=== PATIENT | male | born 1950 | race Caucasian/White ===

== ENCOUNTER 2019-03-08 09:36 | Emergency (ER) | payer MEDICARE, OTHER ==
[~2019-03-08] VITALS: Ht 180.3 cm; Wt 108.9 kg
--- OUTSIDE RECORDS SUMMARY | 2019-03-08 09:42 | XMS REPORT ---
Author Author AMARIS PARKER Organization [employer] Address Unknown Phone Unavailable Care Team Providers Care Functional Tester Typewriters Name Role Phone AMARIS PARKER CP Unavailable Allergies, Adverse Reactions, Alerts Substance Reaction Event Type N.K.D.A. Info Not Available Non Drug Allergy Problems Problem Type Condition Code Onset Dates Condition Status Problem Gout of ankle, unspecified cause, unspecified chronicity, unspecified laterality M10.9 Active Problem Hypercholesterolemia E78.0 Active Problem Cardiac defibrillator in place Z95.810 Active Problem Establishing care with new doctor, encounter for Z71.89 Active Assessment Allergic contact dermatitis, unspecified trigger L23.9 Active Medications Medication Code System Code Instructions Start Date End Date Status Dosage Fish Oil Concentrate [facility] [address]783-[address]60 1000 MG Orally twice a day 1 capsule Indomethacin CR [facility] [address]-64 75 MG Orally 2 times a day 1 capsule with food or milk Aspirin Childrens [facility] [address]-79 81 MG Orally Once a day 1 tablet PredniSONE [facility] [address]-85 10 mg Orally Once a day Aug 12, 2016 3 tabs x 3 days, then 2 tabs x 3 days, then 1 tab x 3 days Allopurinol [facility] [address]-73 300 MG Orally Once a day 1 tablet Procedures Procedure Coding System Code Date SOLUMEDROL (UP TO 125 MG) CPT-4 J2930 Aug 12, 2016 THER/PROPH/DIAG INJ, SC/IM CPT-4 46067 Aug 12, 2016 Office Visit, Est Pt., Level 3 CPT-4 91794 Aug 12, 2016 Vital Signs Date/Time: Aug 12, 2016 Cardiac Monitoring Heart Rate 86 bpm Weight 236 lbs Height 71 in BMI 32.91 Index Blood Pressure Diastolic 70 mmHg Blood Pressure Systolic 122 mmHg Results No Known Results Summary Purpose [employer]Works Submission
--- OUTSIDE RECORDS SUMMARY | 2019-03-08 09:42 | XMS REPORT ---
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 49807330 Problem Cardiac defibrillator in place Z95.810 Active 699452716 Problem Hypercholesterolemia E78.0 Active 26772599 ALLERGIES No Known Allergies ENCOUNTERS Encounter Location Date Diagnosis [place] [address] [address] Sep, Idiopathic chronic gout of multiple sites without tophus M1A.09X0 [place] [address] [place] [id number] [place] [address] Aug, Gout of ankle, unspecified cause, unspecified chronicity, unspecified laterality M10.9 [place] [address] [place] [id number] [place] [address] Aug, Gout of ankle, unspecified cause, unspecified chronicity, unspecified laterality M10.9 ; Hypercholesterolemia E78.0 ; Cardiac defibrillator in place Z95.810 and Rib pain on right side R07.81 [place] [address] [place] [id number] [place] [address] Aug, Urticaria L50.9 [facility] [address] [place] [id number] [place] [address] Jul, Allergic contact dermatitis, unspecified trigger L23.9 [place] [address] [place] [id number] [place] [address] May, Gout of ankle, unspecified cause, unspecified chronicity, unspecified laterality M10.9 and Hypercholesterolemia E78.0 [facility] [address] [facility] [id number] [place] [address] May, [facility] [address] [facility] [id number] [place] [address] May, Establishing care with new doctor, encounter for Z71.89 ; Gout of ankle, unspecified cause, unspecified chronicity, unspecified laterality M10.9 and Hypercholesterolemia E78.0 IMMUNIZATIONS No Known Immunizations SOCIAL HISTORY Never Assessed REASON FOR VISIT Transition of Care, Needs refills for his gout-Eulogio KHAN, PT has a bite/rash on left forarm he has concerns about PLAN OF CARE Activity Details Follow Up 6 Months Reason: VITAL SIGNS Height 71 in 2017-09-29 Weight 224.7 lbs 2017-09-29 Temperature 97.9 degrees Fahrenheit 2017-09-29 Heart Rate 74 bpm 2017-09-29 Respiratory Rate 20 2017-09-29 BMI 31.34 kg/m2 2017-09-29 Blood pressure systolic 128 mmHg 2017-09-29 Blood pressure diastolic 80 mmHg 2017-09-29 MEDICATIONS Medication Instructions Dosage Frequency Start Date End Date Duration Status Fish Oil Concentrate 1000 MG Orally twice a day 1 capsule 12h Active Indomethacin ER 75 MG Orally 2 times a day, prn gout flare 1 capsule with food or milk Active Aspirin Childrens 81 MG Orally Once a day 1 tablet 24h Active Allopurinol 300 MG Orally Once a day 1 tablet 24h 13 Sep, 2018 90 days Active RESULTS No Results PROCEDURES Procedure Date Ordered Result Body Site [facility] VISIT ESTABLISHED PATIENT Sep 29, 2017 INSTRUCTIONS MEDICATIONS ADMINISTERED No Known Medications MEDICAL (GENERAL) HISTORY Type Description Date Medical History Gout, unspecified cause, unspecified chronicity, unspecified site Medical History Hyperlipidemia, unspecified Medical History cad Surgical History pacemaker/defibrillator 2009 Surgical History Lead replaced onm Pacemaker 2016 Hospitalization History heart attack
--- OUTSIDE RECORDS SUMMARY | 2019-03-08 09:42 | XMS REPORT ---
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 47578255 Problem Cardiac defibrillator in place Z95.810 Active 950005418 Problem Hypercholesterolemia E78.0 Active 49651765 ALLERGIES No Information ENCOUNTERS Encounter Location Date Diagnosis [place] [address] [address] Jun, [place] [address] [address] May, Idiopathic chronic gout of multiple sites without tophus M1A.09X0 [place] [address] [address] Sep, Idiopathic chronic gout of multiple sites without tophus M1A.09X0 [place] [address] [place] [id number] [place] [address] Aug, Gout of ankle, unspecified cause, unspecified chronicity, unspecified laterality M10.9 [place] [address] [address] Aug, Gout of ankle, unspecified cause, unspecified chronicity, unspecified laterality M10.9 ; Hypercholesterolemia E78.0 ; Cardiac defibrillator in place Z95.810 and Rib pain on right side R07.81 [place] [address] [place] [id number] [place] [address] 02 Aug, 2016 Urticaria L50.9 [facility] [address] [facility] [id number] [place] [address] Jul, Allergic contact dermatitis, unspecified trigger L23.9 [facility] [address] [facility] [id number] [address] May, Gout of ankle, unspecified cause, unspecified chronicity, unspecified laterality M10.9 and Hypercholesterolemia E78.0 [facility] [address] [place] [id number] [address] May, [facility] [address] [facility] [id number], [place] [address] May, Establishing care with new doctor, encounter for Z71.89 ; Gout of ankle, unspecified cause, unspecified chronicity, unspecified laterality M10.9 and Hypercholesterolemia E78.0 IMMUNIZATIONS No Known Immunizations SOCIAL HISTORY Never Assessed REASON FOR VISIT medication refill PLAN OF CARE VITAL SIGNS MEDICATIONS Medication Instructions Dosage Frequency Start Date End Date Duration Status Indomethacin ER 75 MG Orally 2 times a day, prn gout flare 1 capsule with food or milk Jun, 30 days Active Allopurinol 300 MG Orally Once a day 1 tablet 24h Jun, 30 days Active RESULTS No Results PROCEDURES No Known procedures INSTRUCTIONS MEDICATIONS ADMINISTERED No Known Medications MEDICAL (GENERAL) HISTORY Type Description Date Medical History Gout, unspecified cause, unspecified chronicity, unspecified site Medical History Hyperlipidemia, unspecified Medical History cad Surgical History pacemaker/defibrillator 2009 Surgical History Lead replaced onm Pacemaker 2016 Hospitalization History heart attack
--- OUTSIDE RECORDS SUMMARY | 2019-03-08 09:42 | XMS REPORT ---
Author ARISTEO Maddox [facility] eClinical[employer] Address Unknown Phone Unavailable Care Team Providers Care Supervisor Intermediates Name Role Phone ARISTEO PRUITT CP Unavailable Allergies, Adverse Reactions, Alerts Substance Reaction Event Type N.K.D.A. Info Not Available Non Drug Allergy Problems Problem Type Condition Code Onset Dates Condition Status Problem Gout of ankle, unspecified cause, unspecified chronicity, unspecified laterality M10.9 Active Problem Hypercholesterolemia E78.0 Active Problem Cardiac defibrillator in place Z95.810 Active Assessment Hypercholesterolemia E78.0 Active Problem Establishing care with new doctor, encounter for Z71.89 Active Assessment Gout of ankle, unspecified cause, unspecified chronicity, unspecified laterality M10.9 Active Medications Medication Code System Code Instructions Start Date End Date Status Dosage Allopurinol [facility] [address]-71 300 MG Orally Once a day 1 tablet Fish Oil Concentrate [facility] 18821-59563 1000 MG Orally twice a day 1 capsule Aspirin Childrens [facility] [address]-04 81 MG Orally Once a day 1 tablet Indomethacin CR [facility] [address]-98 75 MG Orally 2 times a day 1 capsule with food or milk Procedures Procedure Coding System Code Date Office Visit, Est Pt., Level 4 CPT-4 01327 Jun 06, 2016 Vital Signs Date/Time: Jun 06, 2016 Cardiac Monitoring Heart Rate 88 bpm Weight 238 lbs Height 71 in BMI 33.19 Index Blood Pressure Diastolic 92 mmHg Blood Pressure Systolic 140 mmHg Results No Known Results Summary Purpose [employer]ClinicalWorks Submission
--- OUTSIDE RECORDS SUMMARY | 2019-03-08 09:42 | XMS REPORT ---
Author Author GERMÁN SUTTON Organization [employer] Address Unknown Phone Unavailable Care Team Providers Care Trailer Truck Driver Name Role Phone GERMÁN SUTTON CP Unavailable Allergies, Adverse Reactions, Alerts Substance Reaction Event Type N.K.D.A. Info Not Available Non Drug Allergy Problems Problem Type Condition Code Onset Dates Condition Status Problem Gout of ankle, unspecified cause, unspecified chronicity, unspecified laterality M10.9 Active Problem Hypercholesterolemia E78.0 Active Problem Cardiac defibrillator in place Z95.810 Active Problem Establishing care with new doctor, encounter for Z71.89 Active Assessment Urticaria L50.9 Active Medications Medication Code System Code Instructions Start Date End Date Status Dosage Aspirin Childrens [facility] [address]-18 81 MG Orally Once a day 1 tablet Fish Oil Concentrate [facility] 10757-32474 1000 MG Orally twice a day 1 capsule PredniSONE [facility] [address]-80 50 MG Orally Once a day Aug 14, 2016 Aug 21, 2016 1 tablet Indomethacin CR [facility] [address]-76 75 MG Orally 2 times a day 1 capsule with food or milk Allopurinol [facility] [address]-68 300 MG Orally Once a day 1 tablet Procedures Procedure Coding System Code Date Office Visit, Est Pt., Level 3 CPT-4 47319 Aug 14, 2016 Vital Signs Date/Time: Aug 14, 2016 Cardiac Monitoring Heart Rate 68 bpm Weight 237 lbs Height 71 in BMI 33.05 Index Blood Pressure Diastolic 80 mmHg Blood Pressure Systolic 136 mmHg Results No Known Results Summary Purpose eClinicalWorks Submission
--- OUTSIDE RECORDS SUMMARY | 2019-03-08 09:43 | XMS REPORT ---
Author ARISTEO Maddox [facility] eClinical[employer] Address Unknown Phone Unavailable Care Team Providers Care Project Manager Name Role Phone ARISTEO PRUITT CP Unavailable Allergies, Adverse Reactions, Alerts Substance Reaction Event Type N.K.D.A. Info Not Available Non Drug Allergy Problems Problem Type Condition Code Onset Dates Condition Status Assessment Rib pain on right side R07.81 Active Problem Gout of ankle, unspecified cause, unspecified chronicity, unspecified laterality M10.9 Active Problem Hypercholesterolemia E78.0 Active Problem Cardiac defibrillator in place Z95.810 Active Assessment Hypercholesterolemia E78.0 Active Assessment Cardiac defibrillator in place Z95.810 Active Problem Establishing care with new doctor, encounter for Z71.89 Active Assessment Gout of ankle, unspecified cause, unspecified chronicity, unspecified laterality M10.9 Active Medications Medication Code System Code Instructions Start Date End Date Status Dosage Indomethacin CR [facility] [address]-94 75 MG Orally 2 times a day 1 capsule with food or milk Allopurinol [facility] [address]-92 300 MG Orally Once a day 1 tablet Aspirin Childrens [facility] [address]-92 81 MG Orally Once a day 1 tablet Fish Oil Concentrate [facility] [address] 1000 MG Orally twice a day 1 capsule Procedures Procedure Coding System Code Date X-RAY EXAM OF RIBS CPT-4 48180 Aug 28, 2016 Office Visit, Est Pt., Level 4 CPT-4 81059 Aug 28, 2016 Vital Signs Date/Time: Aug 28, 2016 Cardiac Monitoring Heart Rate 72 bpm Weight 235.7 lbs Height 71 in BMI 32.87 Index Blood Pressure Diastolic 72 mmHg Blood Pressure Systolic 130 mmHg Results Name Result Date Reference Range Unit Abnormality Flag Xray : Rib Series, Right (IN HOUSE) Summary Purpose eClinicalWorks Submission
[2019-03-08] MEDS ORDERED: predniSONE 20 MG TAB PO ONE (10:15)
[2019-03-08] MEDS ORDERED: KETOROLAC 60 MG/2 ML VIAL IM ONE (10:15)
--- NOTE | 2019-03-08 10:15 | ED Lower Extremity ---
General Chief Complaint: Lower Extremity Stated Complaint: PT STATES HE HAS GOUT IN RT KNEE Source: patient Exam Limitations: no limitations History of Present Illness Date Seen by Provider: March 08, 2019 Time Seen by Provider: 10:00 Initial Comments This is a 68 y/o m who presents to the ED for evaluation of R knee pain. Pt reports history of gout. Ran out of allopurinol a few days ago. Reports increased R knee pain for the past 2-3 days exactly like previous episodes of gout. Pain is constant, 6-7/10, worse with weight bearing/movement. No fever. Allergies and Home Medications Allergies Coded Allergies: No Known Drug Allergies (Unverified , 03/08/19) Patient Home Medication List Home Medication List Reviewed: Yes Review of Systems Constitutional: No chills, No fever, No weakness Respiratory: No cough, No short of breath, No wheezing Cardiovascular: No chest pain, No edema Gastrointestinal: No abdominal pain, No nausea, No vomiting Musculoskeletal: gout, joint pain, joint swelling; No muscle pain Skin: No pruritus, No rash All Other Systems Reviewed Negative Unless Noted: Yes Physical Exam Vital Signs Capillary Refill : Height, Weight, BMI Height: '" Weight: lbs. oz. kg; BMI Method: General Appearance: WD/WN, no apparent distress, other (non-toxic appearing) HEENT: PERRL/EOMI Neck: full range of motion Cardiovascular: regular rate, rhythm, no edema Respiratory: lungs clear, normal breath sounds Back: no vertebral tenderness Knees: right knee other (mild swelling to R knee with moderately decreased ROM. No overlying skin changes. Not warm to touch. ) Neurologic/Psychiatric: no motor/sensory deficits, alert, normal mood/affect, oriented x 3 Skin: normal color, warm/dry Progress/Results/Core Measures Results/Orders My Orders Orders - ROZINA ARGUELLO DO Prednisone Tablet (Deltasone Tablet) (03/08/19 10:15) Ketorolac Injection (Toradol Injection) (03/08/19 10:15) Progress Progress Note : Progress Note Pt with R knee pain typical of previous Gout exacerbations. Requesting refill of allopurinol and Indomethacin. Will place on short course of prednisone and provide Rx for Colchicine x2 dosing. Provided with 30day prescription but advised pt to establish care with a primary care physician. Discussed prescriptions. ER return precautions given. Pt verbalized understanding. Departure Impression Primary Impression: Gout of right knee Disposition: HOME, SELF-CARE Condition: Stable Departure-Patient Inst. Decision time for Depature: 10:30 Referrals: NO,LOCAL PHYSICIAN (PCP/Family) Primary Care Physician Patient Instructions: Gout Scripts Indomethacin (Indomethacin) 75 Mg Capsule.er 75 MG PO BID for 30 Days, #60 CAP Prov: ROZINA ARGUELLO DO 03/08/19 Colchicine (Colchicine) 0.6 Mg Capsule 1.2 MG PO ONCE, #1 CAP Prov: ROZINA ARGUELLO DO 03/08/19 Allopurinol (Allopurinol) 300 Mg Tablet 300 MG PO DAILY for 30 Days, TAB Prov: ROZINA ARGUELLO DO 03/08/19 Prednisone (Prednisone) 20 Mg Tab 40 MG PO DAILY, #6 TAB 0 Refills Prov: ROZINA ARGULELO DO 03/08/19 ROZINA ARGUELLO DO March 08, 2019 10:15
[2019-03-08] MEDS ORDERED: COLC0.6C3 PO (10:32)
[2019-03-08] MEDS ORDERED: ALLO300T2 PO (10:32)
[2019-03-08] MEDS ORDERED: PRD20T PO (10:32)
[2019-03-08] MEDS ORDERED: INDO75CA3 PO (10:33)
[2019-03-08 10:47] VITALS: BP 126/89
== END 2019-03-08 10:47 | disposition home or self-care (01) ==
LOC: ER FS 09:38
DX: M10.061 Idiopathic gout, right knee (principal)
CPT/HCPCS: 96372; 99284

== ENCOUNTER 2019-10-05 10:14 | Emergency (ER) | payer MEDICARE ==
[~2019-10-05 10:14] MED LIST: ALLO300T2 PO; COLC0.6C3 PO; INDO75CA3 PO; KETAMINE/NaCl 50 MG/5 ML SYRINGE (ED ONLY) ONE; PRD20T PO; fentaNYL INJECTION 100 MCG/2 ML AMP ONE
[2019-10-05] MEDS ORDERED: ROCURONIUM 10 MG/ML 5 ML SYRINGE IV ONE (10:16)
[2019-10-05] MEDS ORDERED: ETOMIDATE IV SOLN 20 MG/10 ML VIAL IV ONE (10:16)
--- NOTE | 2019-10-05 10:24 | NUR ---
[employer] 2 accepted flight at this time. ETA 30 min. Will call with ETA when they launch
--- NOTE | 2019-10-05 10:36 | NUR ---
ETA for [employer] is 12 minutes. They have lifted
[2019-10-05] MEDS ORDERED: PROPOFOL DRIP (ICU) 100 ML IV ONE (10:43)
[2019-10-05] MEDS ORDERED: MIDAZOLAM 5 MG/5 ML (VERSED) VIAL ONE (10:43)
[2019-10-05] MEDS ORDERED: fentaNYL INJECTION 100 MCG/2 ML AMP IVP ONE ×2 (10:45→11:00)
[2019-10-05] MEDS ORDERED: KETAMINE/NaCl 50 MG/5 ML SYRINGE (ED ONLY) IV ONE (10:45)
--- NOTE | 2019-10-05 10:45 | ED Trauma-Multisystem ---
General Stated Complaint: HIT BY TREE Activation Level: Level 2 Source of Information: Patient, EMS Exam Limitations: Other (ams) History of Present Illness Date Seen by Provider: Oct 05, 2019 Time Seen by Provider: 10:21 Initial Comments Patient arrives from home by EMS after being hit in the side of the head by a tree that was under pressure that he was getting down. His left side of his head and knocked him out for approximately 30 seconds. EMS reports he was combative and altered and able to answer his name but not aware of surroundings. They're concerned about his airway deteriorating and had him on 4 L of oxygen he was about 88% sats so they brought him to the ER. He does not use oxygen at baseline. He is unable to give any meaningful medical history other than he has a pacemaker according the people accompanying him at the scene. He gives no meaningful history. He is able to answer his name and date of but not his situation or place. Is complaining of pain in his head neck and left shoulder. C-collar was placed by EMS and an IV was started. EMS also gave him half a milligram Ativan for his combativeness. Family arrives after him and they were helping him do some [employer] work. He said he was about 2-3 feet up on a ladder and the chainsaw kicked back flying free and knocking him off the ladder. He was not cut by the chainsaw but he did land on his left shoulder and head and was unconscious for about 30 seconds. After that he was not acting right so they called EMS. He does not smoke but he does drink beer but has not had any today. He does not use recreational drugs. They know he has an AICD but they do not know the on doubt of any other medications or medical history. Allergies and Home Medications Allergies Coded Allergies: No Known Drug Allergies (Unverified , 03/08/19) Home Medications Allopurinol 300 Mg Tablet, 300 MG PO DAILY Prescribed by: ROZINA ARGUELLO on 03/08/19 1032 Colchicine 0.6 Mg Capsule, 1.2 MG PO ONCE Prescribed by: ROZINA ARGUELLO on 03/08/19 1032 Indomethacin 75 Mg Capsule.er, 75 MG PO BID Prescribed by: ROZINA ARGUELLO on 03/08/19 1033 Prednisone 20 Mg Tab, 40 MG PO DAILY Prescribed by: ROZINA ARGUELLO on 03/08/19 1032 Patient Home Medication List Home Medication List Reviewed: Yes Review of Systems Review of Systems Constitutional: see HPI (patient's unable to give a meaningful review of systems due to altered mental status.); No chills, No fever Eyes: Denies Blindness, Denies Blurred Vision Ears: Denies Dizziness, Denies Pain Respiratory: short of breath; No wheezing Cardiovascular: Denies Chest Pain, Denies Edema Past Aybfkwe-Qjpebz-Flwugm Hx Patient Social History Alcohol Use: Regular Use Alcohol Beverage of Choice: Beer Recreational Drug Use: No Smoking Status: Never a Smoker 2nd Hand Smoke Exposure: No Recent Foreign Travel: No Recent Hopitalizations: No Seasonal Allergies Seasonal Allergies: No Past Medical History Surgeries: Yes Defibrillator Respiratory: No Cardiac: Yes Heart Attack Neurological: No Genitourinary: No Gastrointestinal: No Musculoskeletal: No Endocrine: No HEENT: No Cancer: No Psychosocial: No Integumentary: No Blood Disorders: No Physical Exam Height, Weight, BMI Height: 5'11.00" Weight: 240lbs. 0oz. 108.406182hs; BMI Method:Stated General Appearance: Severe Distress Head: Active Bleeding (left ear pinna), Contusions (left side of the face), Ecchymosis (left face neck and clavicle), Tenderness, Other (negative for hemotympanum.) Eyes: Left Eye Normal Inspection, Left Eye PERRL, Left Eye EOMI Ears, Nose, Throat: Hearing Grossly Normal; No Clear Fluid (Ears), No Clear Fluid (Nose) Neck: Other (c-collar in place tender to palpation midline) Cardiovascular: Regular Rate, Rhythm, No Edema, Normal Peripheral Pulses Respiratory: Lungs Clear, Normal Breath Sounds, No Accessory Muscle Use, No Respiratory Distress, Other (left upper chest and shoulder tender to palpation anteriorly) Gastrointestinal: Normal Bowel Sounds, Non Tender, Soft Neurologic/Psychiatric: Alert, Other (oriented to person but not time or situation, barely redirectable, non-cooperative, moaning and saying, "it hurts get this off) Skin: Other (abrasions and contusions left side of the face ecchymoses and abrasions on the left shoulder) [place] Coma Score Best Eye Response (Julia): (3) Open to Voice Best Verbal Response ([place]): (4) Confused Conversation Best Motor Response (Julia): (5) Localizes to Pain [place] Total: 12 Procedures/Interventions Reason for Intubation: protect airway after trauma Date of ETT Placement: Oct 05, 2019 Time of ETT Placement: 10:30 Intubation Method: orotracheal Tube Size: 8.0 Medications: Etomidate (20 mg), Rocuronium (60 mg) Positive End Tide CO2: Yes (5 ET tube) Breath Sounds after Intubation: bilateral-equal Intubation Complications: no complications Post Intubation Xray: Yes good location without pneumothorax Rocuronium and etomidate were given. When the patient was in good position we suctioned him and using the glidoscope with Cari for backup we were able to easily see his vocal cords and no suctioning was necessary. On first attempt we are able to pass an 8.0 ET tube through the vocal cords removed the stylette and position at 24 at the teeth. Chest x-ray density good position with equal aeration and no pneumothorax. It was secured in place and a gastric tube and Bell catheter replaced by nursing staff. Initial vent settings FiO2 60% keeping him around 97% sats, respiratory rate of 18 and PEEP of 5, tidal volume 500. Progress/Results/Core Measures Results/Orders My Orders Orders - EVELYN HOLMAN Fentanyl Injection (Sublimaze Injection (10/05/19 10:14) Ketamine Syringe (Ed Only) (Ketamine Syr (10/05/19 10:14) Chest 1 View Ap/Pa Only (10/05/19 10:35) Ketamine Syringe (Ed Only) (Ketamine Syr (10/05/19 10:45) Fentanyl Injection (Sublimaze Injection (10/05/19 10:45) Midazolam Injection (Versed Injection) (10/05/19 11:00) Propofol Injection (Diprivan Injection) (10/05/19 11:00) Fentanyl Injection (Sublimaze Injection (10/05/19 11:00) Midazolam Injection (Versed Injection) (10/05/19 10:43) Propofol Drip (Icu) (Diprivan Drip (Icu) (10/05/19 10:43) Progress Progress Note : Time: 10:57 Progress Note Patient's airway continued to deteriorate and he was not protecting it. He had oxygen sats at the scene around 80-90% so they put him on 2 L. We put him up to 6 L by nasal cannula keep his sats of 92% so a nasal trumpet was placed. We then gave him some pain medicines ketamine and fentanyl which helped him with his pain and combativeness. The decision early on was made to intubate him because of his deteriorating situation and traumatic brain injury. After he was intubated we had good placement on the chest x-ray. [facility] was called and we got acceptance to transfer for trauma to the ER. [facility] was already called and arrived at approximately 1055. Family has been updated and allowed to visit with the patient briefly. Review using propofol. Give a one-time dose of fentanyl 100 g and Versed 3 mg because his blood pressure shot up to 200/110 and suspect this is related to pain. After the medications were given his blood pressure went back down to around 120 systolic. Diagnostic Imaging Diagonstic Imaging: Xray Plain Films/CT/US/NM/MRI: chest (1v) Comments NAME: FAITH ECHEVARRIA [facility] REC#: [id number] PT STATUS: REG ER : 1950 PHYSICIAN: EVELYN HOLMAN MD ADMIT DATE: 10/05/19/ER FS Draft Date of Exam:10/05/19 CHEST 1 VIEW AP/PA ONLY INDICATION: Trauma, tree fell on patient. Patient is status post intubation. TIME OF EXAM: 10:17 AM No prior studies are available for comparison. ET tube has tip in good position above the jesús. Cardiac defibrillator is in place. Heart is enlarged. There is mild central congestion. No pneumothorax or effusion is seen. There does appear to be a fracture of the distal clavicle without evidence of displacement or AC separation. IMPRESSION: 1. Satisfactory endotracheal tube placement. 2. Distal right clavicle fracture. Dictated on workstation # [id number] Dict: 10/05/19 1045 Trans: 10/05/19 1047 [facility] [id number] Interpreted by: ESAU SHANKS MD Electronically signed by: Reviewed: Reviewed by Me Critical Care Note Critical Care Start Time: 10:20 Stop Time: 11:05 Total Time (minutes) 45m Progress Patient's airway is deteriorating so we intubated him. He started out without need for supplementary oxygen prior to the injury. EMS put him on 2 L because his sats were low in the upper 80s. When he arrived the ER we had the moving up to 4 L by nasal cannula to keep him at 94% and eventually his sats Down to 90% so we put him on 6 L and that brought him up to about 94%. Because of his increasing demand for oxygen a nasal trumpet was placed which she tolerated. His sats continued to lower so the decision was made to intubate. Initially his sats were low at FiO2 of 40% so we bumped him up to FiO2 60% which kept his SPO2 at 97-98%. He was breathing over the vent about 25 breaths per minute and had an elevated broad blood pressure shortly after we intubated him (225/115) so we gave him some fentanyl and Versed and started a propofol drip suspecting he might be having pain. His vital signs improved significantly. His heart rate came down from the 80s to back to the 50s to 60 range and his blood pressure came down from 200 systolic to about 120 systolic. At this point [facility] arrived so we placed a gastric tube, Bell and packaged him and sent him with [facility] to [facility] for trauma and potential neurosurgical evaluation. Patient had good oxygen sats and vitals when he left our care. Departure Impression Primary Impression: Traumatic injury of head Qualified Codes: S09.90XA - Unspecified injury of head, initial encounter Additional Impressions: Fall from ladder Qualified Codes: W11.XXXA - Fall on and from ladder, initial encounter Altered mental status Qualified Codes: R41.0 - Disorientation, unspecified Airway intubation performed without difficulty Closed right clavicular fracture Qualified Codes: S42.034A - Nondisplaced fracture of lateral end of right clavicle, initial encounter for closed fracture Abrasions of multiple sites Traumatic ecchymosis of left shoulder Qualified Codes: S40.012A - Contusion of left shoulder, initial encounter Disposition: 02 XFER SHT-TRM HOSP Condition: Critical Transfer Transfer Reason: Exceeds level of care (trauma patient potentially requiring neurosurgery) Time Spoke to Accepting Phy: 10:[address] Whittaker at [facility] emergency department accepts the patient in transfer. Transfer Time: 11:15 Transfer Facility: [place], [place]; emergency department Method of Transfer: Air (. Care) Departure-Patient Inst. Referrals: NO,LOCAL PHYSICIAN (PCP/Family) Primary Care Physician EVELYN HOLMAN Oct 05, 2019 10:45
--- NOTE | 2019-10-05 10:48 | Diagnostic Imaging Report ---
INDICATION: Trauma, tree fell on patient. Patient is status post intubation. TIME OF EXAM: 10:17 AM No prior studies are available for comparison. ET tube has tip in good position above the jesús. Cardiac defibrillator is in place. Heart is enlarged. There is mild central congestion. No pneumothorax or effusion is seen. There does appear to be a fracture of the distal clavicle without evidence of displacement or AC separation. IMPRESSION: 1. Satisfactory endotracheal tube placement. 2. Distal right clavicle fracture. Dictated by: Dictated on workstation # [id number]
[2019-10-05] MEDS ORDERED: PROPOFOL INJECTION 50 ML IV SCH (11:00)
[2019-10-05] MEDS ORDERED: MIDAZOLAM 5 MG/5 ML (VERSED) VIAL IVP ONE (11:00)
[2019-10-05 11:15] VITALS: BP 96/64
== END 2019-10-05 11:21 | disposition short-term general hospital (02) ==
LOC: EDUNIT# 10:14 → ER FS 10:15
DX: S09.90XA Unspecified injury of head, initial encounter (principal); S42.034A Nondisplaced fracture of lateral end of right clavicle, initial encounter for closed fracture; S40.012A Contusion of left shoulder, initial encounter; S00.81XA Abrasion of other part of head, initial encounter; R45.851 Suicidal ideations; J39.8 Other specified diseases of upper respiratory tract; I25.2 Old myocardial infarction; R40.2132 Coma scale, eyes open, to sound, at arrival to emergency department; R40.2242 Coma scale, best verbal response, confused conversation, at arrival to emergency department; R40.2352 Coma scale, best motor response, localizes pain, at arrival to emergency department; Z95.810 Presence of automatic (implantable) cardiac defibrillator; Z79.52 Long term (current) use of systemic steroids; Z99.81 Dependence on supplemental oxygen; W11.XXXA Fall on and from ladder, initial encounter
CPT/HCPCS: 31500; 51702; 71045; 96374; 96375